=== PATIENT | male | born 1980 | race Caucasian/White ===

== ENCOUNTER 2020-07-21 04:35 | Emergency (ER) | payer OTHER ==
[~2020-07-21] VITALS: Ht 177.8 cm; Wt 99.8 kg
[2020-07-21 04:44] VITALS: Ht 177.8 cm; Wt 99.8 kg
[2020-07-21 05:29] LABS: BASOPHIL % 0.4 % (0-2); PLATELET COUNT 315 x10^3mcL (130-400)
[2020-07-21 05:31] LABS: RED CELL DISTRIBUTION WIDTH 15.6 % (11.5-14.5)
[2020-07-21 05:31] LABS: UA SPECIFIC GRAVITY 1.025 (1.005-1.035); microscopic required? YES; urine erythrocyte NEGATIVE (NEGATIVE)
[2020-07-21 05:40] LABS: CALCIUM 8.9 mg/dL (8.5-10.1); CARBON DIOXIDE 26.2 mmol/L (21-32); CREATININE SERUM 1.6 mg/dL (0.7-1.3); POTASSIUM SERUM 4.6 mmol/L (3.5-5.1)
[2020-07-21 05:44] LABS: BILIRUBIN TOTAL 0.25 mg/dL (0.20-1.00)
[2020-07-21 05:49] LABS: ALBUMIN 3.3 g/dL (3.4-5.0)
[2020-07-21 06:51] VITALS: BP 142/87
== END 2020-07-21 06:51 | disposition home or self-care (01) ==
LOC: ED 04:35
PROVIDERS: Emergency Medicine
DX: K59.00 Constipation, unspecified (principal); I11.0 Hypertensive heart disease with heart failure; I50.9 Heart failure, unspecified
CPT/HCPCS: J1885; J2405; Q0092